=== PATIENT | female | born 1935 | race Caucasian/White ===

== ENCOUNTER → 2017-09-23 | Outpatient (CLI) | payer OTHER, MEDICARE ==
[~2017-09-23] MED LIST: ACETAMINOPHEN650 M4 PR; BUPROPION XL300 MG PO; DOCUSATE SODIU100 MG PO; FERROUS SULFAT325 MG PO; FOLIC ACID1 MG PO; LISINOPRIL5 MG PO
== END | disposition home or self-care (01) ==
LOC: RAD 12:40
DX: G93.6 Cerebral edema (principal); G93.5 Compression of brain; I61.8 Other nontraumatic intracerebral hemorrhage; G93.89 Other specified disorders of brain
CPT/HCPCS: 70450

== ENCOUNTER 2017-10-06 05:03 | Emergency (ER) | payer OTHER, MEDICARE ==
[~2017-10-06] VITALS: Ht 149.9 cm; Wt 52.2 kg
[2017-10-06] MEDS ORDERED: CIPRO500 MG PO (05:43)
[2017-10-06 05:52] LABS: CHLORIDE 103 mEq/L (99-109); INTER. NORMALIZED RATIO 1.1; POTASSIUM 3.9 mEq/L (3.7-5.4); PROTHROMBIN TIME 12.5 SEC (10.2-12.9); SODIUM 137 mEq/L (136-147)
[2017-10-06 05:54] LABS: GLUCOSE 102 mg/dL (70-99)
[2017-10-06 05:55] LABS: ANION GAP 9 MEQ/L (2-14)
[2017-10-06 05:58] LABS: GFR ESTIMATE (CALCULATED) > 59 mL/min/; UREA NITROGEN (BUN) 19 mg/dL (9-23)
[2017-10-06 06:02] LABS: HEMATOCRIT 38.6 % (36.0-46.0); MCH 28.3 PG (29.0-34.0); MCHC 32.6 G/DL (30.0-36.0); MCV 86.5 FL (83-99); PLATELET COUNT 236 K/uL (156-360); RBC DIS.WIDTH-CV 15.2 % (11.8-14.6); RBC DIS.WIDTH-SD 48.3 % (39-53); RED BLOOD COUNT 4.46 M/uL (3.80-5.20); WHITE BLOOD COUNT 6.1 K/uL (4.1-10.2)
[2017-10-06 06:39] VITALS: BP 98/58
== END 2017-10-06 06:40 ==
LOC: EME → EDBD 05:03 → EME 06:40
PROVIDERS: Emergency Medicine
DX: N39.0 Urinary tract infection, site not specified (principal); R29.6 Repeated falls; K21.9 Gastro-esophageal reflux disease without esophagitis; Z87.891 Personal history of nicotine dependence; Z86.73 Personal history of transient ischemic attack (TIA), and cerebral infarction without residual deficits
CPT/HCPCS: 71010; 73522; 80048; 85027; 85610; 99281; 99284

== ENCOUNTER 2017-10-13 21:28 | Emergency (ER) | payer OTHER, MEDICARE ==
[~2017-10-13] VITALS: Ht 149.9 cm; Wt 58.9 kg
[~2017-10-13 21:28] MED LIST changes: +CIPRO500 MG PO
[2017-10-14 03:30] VITALS: BP 123/62
== END 2017-10-14 03:48 ==
LOC: EME 21:28
DX: S09.90XA Unspecified injury of head, initial encounter (principal); D18.1 Lymphangioma, any site; M48.54XA Collapsed vertebra, not elsewhere classified, thoracic region, initial encounter for fracture; I69.351 Hemiplegia and hemiparesis following cerebral infarction affecting right dominant side; M25.551 Pain in right hip; M25.552 Pain in left hip; M25.561 Pain in right knee; M17.11 Unilateral primary osteoarthritis, right knee; W06.XXXA Fall from bed, initial encounter; Y92.129 Unspecified place in nursing home as the place of occurrence of the external cause; M81.0 Age-related osteoporosis without current pathological fracture; K21.9 Gastro-esophageal reflux disease without esophagitis; M41.9 Scoliosis, unspecified; Z85.3 Personal history of malignant neoplasm of breast; Z87.891 Personal history of nicotine dependence; Z90.11 Acquired absence of right breast and nipple
CPT/HCPCS: 70450; 72128; 72131; 73522; 73564; 99281; 99285